=== PATIENT | male | born 1945 | race Caucasian/White ===

== ENCOUNTER 2022-11-25 05:43 | Inpatient (IN) | payer MEDICARE, OTHER ==
[2022-11-23 11:37] LABS: BASOPHILS # (AUTO) 0.1 X10'3 (0-0.2); BASOPHILS % (AUTO) 1.3 % (0-1); EOSINOPHILS # (AUTO) 0.4 X10'3 (0-0.9); EOSINOPHILS % (AUTO) 6.7 % (0-6); HEMATOCRIT 41.4 % (42.0-52.0); HEMOGLOBIN 13.9 g/dl (14.0-17.9); LYMPHOCYTES # (AUTO) 1.3 X10'3 (1.1-4.8); LYMPHOCYTES % (AUTO) 19.9 % (21-51); MEAN CORPUSCULAR HEMOGLOBIN 30.4 PG (27.0-31.0); MEAN CORPUSCULAR HGB CONC 33.6 g/dL (33.0-36.5); MEAN CORPUSCULAR VOLUME 90.7 FL (78-98); MEAN PLATELET VOLUME 7.7 FL (7.4-10.4); MONOCYTES # (AUTO) 0.5 X10'3 (0-0.9); MONOCYTES % (AUTO) 8.6 % (2-12); NEUTROPHILS % (AUTO) 63.5 % (42-75); PLATELET COUNT 309 X10'3 (140-440); RED BLOOD COUNT 4.57 X10'6 (4.70-6.10); RED CELL DISTRIBUTION WIDTH 14.3 % (11.5-14.5); WHITE BLOOD COUNT 6.4 X10'3 (4.5-11.0)
[2022-11-23 11:48] LABS: APTT 27 SECONDS (22-32)
[2022-11-23 11:56] LABS: ALANINE AMINOTRANSFERASE 17 U/L (12-78); ALBUMIN 3.8 G/DL (3.4-5.0); ALBUMIN/GLOBULIN RATIO 1.1 (1.1-1.5); ALKALINE PHOSPHATASE 75 IU/L (46-116); ANION GAP 8 (8-16); ASPARTATE AMINO TRANSFERASE 17 U/L (10-37); BILIRUBIN,TOTAL 0.5 MG/DL (0.1-1.0); BLOOD UREA NITROGEN 23 MG/DL (7-18); BUN/CREATININE RATIO 22.5 (10.0-20.0); CALCIUM 9.4 MG/DL (8.5-10.1); CHLORIDE 106 MMOL/L (99-107); CREATININE 1.02 MG/DL (0.60-1.10); GLUCOSE 148 MG/DL (70-104); POTASSIUM 4.4 MMOL/L (3.5-5.1); SODIUM 139 MMOL/L (135-145); TOTAL CARBON DIOXIDE 25.5 MMOL/L (24-32); TOTAL PROTEIN 7.4 G/DL (6.4-8.2); eGFR 71 ML/MIN
[~2022-11-25] VITALS: Ht 175.3 cm; Wt 109.8 kg
[2022-11-25] VITALS (15 sets, daily range): BP systolic 120–159; BP diastolic 74–92
[2022-11-25] MEDS ORDERED: diphenhydrAMINE 25mg capsule PO PRN (06:25)
[2022-11-25] MEDS ORDERED: glucagon, human recombinant 1mg kit SUBCUT PRN (06:25)
[2022-11-25] MEDS ORDERED: dextrose 50%-water 50ml dispensing syringe IV PRN ×2 (06:25)
[2022-11-25] MEDS ORDERED: DEXTROSE 15 GM of carb/4 tabs (each vial/BOTTLE has 4 tablets) PO PRN ×2 (06:25)
[2022-11-25] MEDS ORDERED: MESSAGE TO PHARMACY PO ONE (06:25)
[2022-11-25] MEDS ORDERED: nitroGLYCERIN 0.4mg SUBLingual tab SL PRN ×2 (06:25→11:40)
[2022-11-25] MEDS ORDERED: LORazepam 0.5 MG tablet PO PRN (06:25)
[2022-11-25] MEDS ORDERED: GLIP5TAB13 PO (06:27)
[2022-11-25] MEDS ORDERED: PIOG45TA65 PO (06:27)
[2022-11-25] MEDS ORDERED: RAMI2.5C54 PO (06:27)
[2022-11-25] MEDS ORDERED: OM3-1CAP PO (06:27)
[2022-11-25] MEDS ORDERED: METF-1203 PO (06:27)
[2022-11-25] MEDS: normal saline 1,000 ML IV SCH (07:14)
[2022-11-25] MEDS ORDERED: fentaNYL/PF 50MCG/1 ML 2ML syringe ONE (09:35)
[2022-11-25] MEDS ORDERED: iohexol 300mg/ml 100ml inj. ONE (09:35)
[2022-11-25] MEDS ORDERED: iohexol 350 MG/ML 50ML vial IV ONE (09:35)
[2022-11-25] MEDS ORDERED: LIDOcaine 1% 30ml preserv. free vial ONE (09:35)
[2022-11-25] MEDS ORDERED: midazolam 1 mg/ML 2ml injection ONE (09:35)
[2022-11-25] MEDS ORDERED: ondansetron/PF 4mg/2ml inj IV PRN (11:40)
[2022-11-25] MEDS ORDERED: normal saline 1000ml 1,000 ML IV SCH (11:40)
[2022-11-25] MEDS ORDERED: OXAZEpam 15mg capsule PO PRN (11:40)
[2022-11-25] MEDS ORDERED: HYDROcodone/acetaminophen 5mg/325mg tablet PO PRN (11:40)
[2022-11-25] MEDS ORDERED: HYDROcodone/acetaminophen 10/325mg tab PO PRN (11:40)
[2022-11-25] MEDS ORDERED: proCHLORperazine 10 MG/2 ml inj IV PRN (11:40)
[2022-11-25] MEDS ORDERED: potassium Cl 40MEQ/1/2NS 520ml 520 ML IV PRN (15:40)
[2022-11-25] MEDS ORDERED: cefazolin 2gm/D5W 100mL 100 ML IV ONE (15:40)
[2022-11-25] MEDS ORDERED: vancomycin/NS 1 GM ADD-VANTAGE 250 ML IV ONE (15:40)
[2022-11-25] MEDS ORDERED: magnesium 2GM in 50ml NS 50 ML IV PRN (15:40)
[2022-11-25] MEDS ORDERED: potassium CL 10mEq/100ml bag 100 ML IV PRN (15:40)
[2022-11-25] MEDS ORDERED: potassium Cl 40MEQ/270ML bag 250 ML IV PRN (15:40)
[2022-11-25] MEDS ORDERED: magnesium 4gm in 100ml NS 100 ML IV PRN (15:40)
[2022-11-25] MEDS ORDERED: potassium Cl 20mEq/100mL bag 100 ML IV PRN (15:40)
[2022-11-25 17:35] LABS: ALBUMIN 3.3 G/DL (3.4-5.0); ANION GAP 8 (8-16); BLOOD UREA NITROGEN 17 MG/DL (7-18); BUN/CREATININE RATIO 18.1 (10.0-20.0); CALCIUM 9.2 MG/DL (8.5-10.1); CHLORIDE 105 MMOL/L (99-107); CREATININE 0.94 MG/DL (0.60-1.10); GLUCOSE 123 MG/DL (70-104); MAGNESIUM 1.8 MG/DL (1.5-2.4); POTASSIUM 4.1 MMOL/L (3.5-5.1); SODIUM 139 MMOL/L (135-145); TOTAL CARBON DIOXIDE 25.6 MMOL/L (24-32); eGFR 78 ML/MIN
[2022-11-25 17:38] LABS: BASOPHILS % (AUTO) 0.7 % (0-1); EOSINOPHILS # (AUTO) 0.3 X10'3 (0-0.9); EOSINOPHILS % (AUTO) 5.1 % (0-6); HEMATOCRIT 40.1 % (42.0-52.0); HEMOGLOBIN 13.2 g/dl (14.0-17.9); LYMPHOCYTES # (AUTO) 1.1 X10'3 (1.1-4.8); LYMPHOCYTES % (AUTO) 18.6 % (21-51); MEAN CORPUSCULAR HGB CONC 32.8 g/dL (33.0-36.5); MEAN CORPUSCULAR VOLUME 91.5 FL (78-98); MEAN PLATELET VOLUME 7.9 FL (7.4-10.4); MONOCYTES # (AUTO) 0.6 X10'3 (0-0.9); MONOCYTES % (AUTO) 10.4 % (2-12); NEUTROPHILS # (AUTO) 3.8 X10'3 (1.8-7.7); NEUTROPHILS % (AUTO) 65.2 % (42-75); PLATELET COUNT 280 X10'3 (140-440); RED BLOOD COUNT 4.38 X10'6 (4.70-6.10); RED CELL DISTRIBUTION WIDTH 14.2 % (11.5-14.5); WHITE BLOOD COUNT 5.9 X10'3 (4.5-11.0)
[2022-11-25 17:39] LABS: APTT 28 SECONDS (22-32)
[2022-11-25] MEDS ORDERED: ACETYLCYSTEINE 200 MG/1 ML 4 ML ORAL SOLUTION PO SCH (20:00)
[2022-11-25] MEDS ORDERED: glipizide 5mg tablet PO SCH ×2 (20:00→21:29)
[2022-11-25] MEDS: insulin glargine (Lantus) pen - multi-dose SQ SCH (21:00)
--- NOTE | 2022-11-25 21:24 | NUR ---
pts b/s around 2100 was 247.pt refused the insulin protocol, said that he uses only his oral meds. Irvin was notified and he ordered that pts glipizide that was on hold be resumed this night.
[2022-11-26 02:00] VITALS: BP 135/72
[2022-11-26] MEDS: normal saline 1,000 ML IV SCH ×3 (02:25→23:24)
--- NOTE | 2022-11-26 06:29 | NUR ---
Problems reprioritized. Patient report given, questions answered & plan of care reviewed with so HARVEY.
--- NOTE | 2022-11-26 07:50 | NUR ---
Patient in room PCU 3023. I have received report from Ann HARVEY and had the opportunity to ask questions and assume patient care. Pt resting comfortably in bed wit no signs of distress. BLL, call light with in reach.
[2022-11-26] MEDS ORDERED: pioglitazone 45mg tablet PO SCH (08:00)
--- NOTE | 2022-11-26 09:40 | NUR ---
DM Consult: Pt hx DM A1C 7.0% per EMR; appropriate given advanced age. Addendum: 11/26/22 at [address] Amended: Links added.
[2022-11-26 11:00] VITALS: BP 140/75
[2022-11-26 11:06] LABS: ABG BASE EXCESS -2.6 mmol/L (-2.0-2.0); ABG HCO3 21.5 mmol/L (22.0-26.0); ABG OXYGEN SATURATION 96.9 % (94-97); ABG PCO2 (T) 35.3 mmHg (35.0-48.0); ABG PO2 (T) 85.4 mmHg (75.0-100.0); ALLEN'S TEST POSITIVE; FCOHb 0.4 % (0.0-3.9); FMetHb 0.2 % (0.0-1.5); FO2Hb 96.3 % (94-97); TOTAL HEMOGLOBIN 13.8 G/dl (14.0-17.9)
[2022-11-26 12:50] LABS: CLARITY,URINE CLEAR (Clear); COLOR,URINE YELLOW (Yellow); GLUCOSE, URINE 500 mg/dl (Neg); KETONES,URINE NEGATIVE (Neg); LEUKOCYTE ESTERASE ,URINE NEGATIVE (Neg); NITRITES, URINE NEGATIVE (Neg); OCCULT BLOOD,URINE NEGATIVE (Neg); PH,URINE 5.5 (4.8-8.0); PROTEIN,URINE NEGATIVE (Neg)
[2022-11-26 12:56] LABS: UA COLLECTION TYPE NON-SPECIFIED
--- NOTE | 2022-11-26 13:14 | NUR ---
Pt is going through prep for his CABG tomorrow. I paged vascular for when they are seeing pt as orders are in but pt has not been seen by them yet. Will continue to follow up.
[2022-11-26 15:00] VITALS: BP 153/95
[2022-11-26 15:42] LABS: BASOPHILS # (AUTO) 0.1 X10'3 (0-0.2); BASOPHILS % (AUTO) 1.5 % (0-1); EOSINOPHILS # (AUTO) 0.3 X10'3 (0-0.9); EOSINOPHILS % (AUTO) 4.3 % (0-6); HEMATOCRIT 38.6 % (42.0-52.0); LYMPHOCYTES # (AUTO) 1.1 X10'3 (1.1-4.8); LYMPHOCYTES % (AUTO) 16.9 % (21-51); MEAN CORPUSCULAR HEMOGLOBIN 30.5 PG (27.0-31.0); MEAN CORPUSCULAR HGB CONC 33.6 g/dL (33.0-36.5); MEAN CORPUSCULAR VOLUME 90.8 FL (78-98); MONOCYTES # (AUTO) 0.7 X10'3 (0-0.9); MONOCYTES % (AUTO) 11.3 % (2-12); NEUTROPHILS # (AUTO) 4.2 X10'3 (1.8-7.7); PLATELET COUNT 271 X10'3 (140-440); RED BLOOD COUNT 4.25 X10'6 (4.70-6.10); RED CELL DISTRIBUTION WIDTH 14.2 % (11.5-14.5); WHITE BLOOD COUNT 6.4 X10'3 (4.5-11.0)
[2022-11-26 15:50] LABS: ALBUMIN 3.3 G/DL (3.4-5.0); ANION GAP 4 (8-16); BLOOD UREA NITROGEN 20 MG/DL (7-18); BUN/CREATININE RATIO 17.1 (10.0-20.0); CALCIUM 9.5 MG/DL (8.5-10.1); CHLORIDE 103 MMOL/L (99-107); CREATININE 1.17 MG/DL (0.60-1.10); GLUCOSE 166 MG/DL (70-104); MAGNESIUM 1.9 MG/DL (1.5-2.4); POTASSIUM 4.6 MMOL/L (3.5-5.1); SODIUM 135 MMOL/L (135-145); TOTAL CARBON DIOXIDE 27.8 MMOL/L (24-32); eGFR 60 ML/MIN
--- NOTE | 2022-11-26 16:29 | NUR ---
Educated pt on DM and the use of insulin to cover blood sugars. Pt refused the use of insulin. Will continue to educate.
[2022-11-26] MEDS ORDERED: ringers solution, lacted 1,000 ML IV ONE (18:55)
[2022-11-26 19:00] VITALS: BP 140/74
--- NOTE | 2022-11-26 19:58 | NUR ---
Pt has been refusing insulin use as he prefers his pill use for DM management. I have talked to him about how we use insulin in the hospital for DM control but he wants to not take insulin injections.
[2022-11-26] MEDS: insulin glargine (Lantus) pen - multi-dose SQ SCH (21:00)
[2022-11-26 23:20] VITALS: BP 138/71
--- NOTE | 2022-11-26 23:36 | NUR ---
Problems reprioritized. Patient report given, questions answered & plan of care reviewed with Marleni HARVEY.
[2022-11-27] VITALS (23 sets, daily range): BP systolic 100–134; BP diastolic 49–73
--- NOTE | 2022-11-27 | NUR ---
Patient in room PCU 3023. I have received report from HOLLIE HARVEY and had the opportunity to ask questions and assume patient care. Addendum: 11/27/22 at 0210 by Marleni Dobson RN AGREE WITH HOLLIE HARVEY PATIENT ASSESSMENTS, TAKING OVER ASSIGNMENT UNTIL DAY SHIFT 11/27/22
[2022-11-27 02:07] LABS: BASOPHILS # (AUTO) 0.1 X10'3 (0-0.2); BASOPHILS % (AUTO) 0.9 % (0-1); EOSINOPHILS # (AUTO) 0.3 X10'3 (0-0.9); EOSINOPHILS % (AUTO) 4.7 % (0-6); HEMOGLOBIN 12.9 g/dl (14.0-17.9); LYMPHOCYTES # (AUTO) 1.2 X10'3 (1.1-4.8); LYMPHOCYTES % (AUTO) 19.8 % (21-51); MEAN CORPUSCULAR HEMOGLOBIN 30.6 PG (27.0-31.0); MEAN CORPUSCULAR VOLUME 90.2 FL (78-98); MEAN PLATELET VOLUME 7.3 FL (7.4-10.4); MONOCYTES # (AUTO) 0.7 X10'3 (0-0.9); MONOCYTES % (AUTO) 11.2 % (2-12); NEUTROPHILS # (AUTO) 3.7 X10'3 (1.8-7.7); NEUTROPHILS % (AUTO) 63.4 % (42-75); PLATELET COUNT 257 X10'3 (140-440); RED BLOOD COUNT 4.21 X10'6 (4.70-6.10); RED CELL DISTRIBUTION WIDTH 13.8 % (11.5-14.5); WHITE BLOOD COUNT 5.9 X10'3 (4.5-11.0)
[2022-11-27 02:17] LABS: ALBUMIN 3.1 G/DL (3.4-5.0); ANION GAP 6 (8-16); BLOOD UREA NITROGEN 19 MG/DL (7-18); BUN/CREATININE RATIO 18.3 (10.0-20.0); CALCIUM 9.2 MG/DL (8.5-10.1); CHLORIDE 105 MMOL/L (99-107); CREATININE 1.04 MG/DL (0.60-1.10); GLUCOSE 184 MG/DL (70-104); MAGNESIUM 1.9 MG/DL (1.5-2.4); POTASSIUM 4.2 MMOL/L (3.5-5.1); SODIUM 136 MMOL/L (135-145); TOTAL CARBON DIOXIDE 25.3 MMOL/L (24-32); eGFR 69 ML/MIN
[2022-11-27] MEDS ORDERED: vancomycin/NS 1 GM ADD-VANTAGE 250 ML IV ONE (05:30)
[2022-11-27] MEDS ORDERED: cefazolin 2gm/D5W 100mL 100 ML IV ONE (05:30)
[2022-11-27] MEDS ORDERED: vancomycin 1,500 MG in NS 300ml IV soln IV ONE (05:30)
[2022-11-27] MEDS ORDERED: mupirocin 2% nasal ointment 1gm UD NS SCH (05:30)
[2022-11-27] MEDS ORDERED: Insulin Reg/NS 100units/100mL 100 ML IV SCH ×2 (05:30→11:35)
[2022-11-27] MEDS ORDERED: dextrose 50%-water 50ml dispensing syringe IV PRN ×2 (05:30→11:35)
[2022-11-27] MEDS ORDERED: potassium Cl 20 mEq SR tablet PO PRN ×2 (05:30→11:35)
[2022-11-27] MEDS ORDERED: gabapentin 400mg capsule PO ONE (05:30)
[2022-11-27] MEDS ORDERED: insulin glargine (Lantus) pen - multi-dose SQ PRN ×2 (05:30→11:35)
[2022-11-27] MEDS ORDERED: epiNEPHrine 1 mg/ml inj ONE ×2 (05:45→10:00)
[2022-11-27] MEDS ORDERED: ceFAZolin 1000mg inj ONE (05:45)
[2022-11-27] MEDS ORDERED: BUPIVAcaine/PF 5 mg/ml 10ml ONE ×2 (05:46→09:21)
[2022-11-27] MEDS ORDERED: famotidine 20mg tablet PO ONE (06:00)
[2022-11-27] MEDS ORDERED: LORazepam 2 mg/ml vial IV ONE (06:00)
[2022-11-27] MEDS ORDERED: metoprolol tartrate 12.5mg (1/2 tablet) PO STA (06:38)
[2022-11-27] MEDS ORDERED: SUFENTANIL CITRATE 50 MCG/ML 2ml ampule IV ONE (07:06)
[2022-11-27] MEDS ORDERED: midazolam 1 mg/ML 2ml injection ONE (07:07)
--- NOTE | 2022-11-27 07:13 | NUR ---
Problems reprioritized. Patient report given, questions answered & plan of care reviewed with RODERICK HARVEY.
--- NOTE | 2022-11-27 07:40 | NUR ---
taken to OR for CABG
[2022-11-27] MEDS ORDERED: protamine sulf. 10mg/ml inj. IV ONE (07:43)
[2022-11-27] MEDS ORDERED: nitroGLYCERIN in D5W 50mg/250ml (Tridil) infusion IV ONE (07:43)
[2022-11-27] MEDS ORDERED: DOPamine/D5W 400mg/250ml bag IV ONE (07:43)
[2022-11-27] MEDS ORDERED: isoflurane 100ml inhalation liquid IH ONE (07:43)
[2022-11-27] MEDS ORDERED: mannitol 12.5gm/50mL VIAL IV ONE (08:00)
[2022-11-27] MEDS ORDERED: sodium bicarbonate (8.4%) 1 mEq/ml syringe ONE (08:00)
[2022-11-27] MEDS ORDERED: heparin 1,000 units/ml 10ml inj ONE (08:00)
[2022-11-27] MEDS ORDERED: albumin (human) 25% 100 ML IV solution IV ONE (08:00)
[2022-11-27] MEDS ORDERED: magnesium 1 GM/2 ML inj ONE (08:00)
[2022-11-27] MEDS ORDERED: NORepinephrine bitart. inj. IV ONE (08:00)
[2022-11-27] MEDS ORDERED: LIDOcaine 2% (20 mg/ml) 5ml cardiac syringe ONE (08:00)
[2022-11-27] MEDS ORDERED: calcium chloride 100 MG/1 ML inj IV ONE (08:00)
[2022-11-27] MEDS ORDERED: methylPREDNISolone sod succ 1000mg vial ONE (08:00)
[2022-11-27] MEDS ORDERED: heparin 10,000 units/1 ML INJ ONE (08:00)
[2022-11-27] MEDS ORDERED: aminocaproic acid 250 MG/1 ML inj. ONE (08:00)
[2022-11-27 08:17] LABS: ABG HCO3 20.6 mmol/L (22.0-26.0); ABG PCO2 40.2 mmHg (35.0-48.0); ABG PO2 393.9 mmHg (75.0-100.0); CL (ABG) 103 mmol/L (99-107); FCOHb 0.4 % (0.0-3.9); FMetHb 0.3 % (0.0-1.5); FO2Hb 99.3 % (94-97); GLUCOSE (ABG) 211 mg/dl (70-104); K (ABG) 4.2 mmol/L (3.5-5.1); TOTAL HEMOGLOBIN 12.5 G/dl (14.0-17.9)
[2022-11-27 09:42] LABS: ABG BASE EXCESS VENOUS -3.6 mmol/L (-2.0 - 2.0); ABG HCO3 VENOUS 24.2 mmol/L (21.0-28.0); ABG PCO2 VENOUS 55.7 mmHg (41.0-54.0); ABG PO2 VENOUS 45.7 mmHg (25.0-35.0); CL (ABG) 104 mmol/L (99-107); FHHb VENOUS 22.5 %; FO2Hb VENOUS 76.5 %; GLUCOSE (ABG) 94 mg/dl (70-104); IONIZED CA (ABG) 1.21 mmol/L (1.10-1.30); TOTAL HEMOGLOBIN 12.6 G/dl (14.0-17.9)
[2022-11-27 09:57] LABS: ABG HCO3 25.2 mmol/L (22.0-26.0); ABG OXYGEN SATURATION 99.6 % (94-97); ABG PCO2 43.1 mmHg (35.0-48.0); ABG PO2 324.9 mmHg (75.0-100.0); CL (ABG) 101 mmol/L (99-107); FCOHb 0.2 % (0.0-3.9); FMetHb 0.3 % (0.0-1.5); FO2Hb 99.1 % (94-97); GLUCOSE (ABG) 76 mg/dl (70-104); IONIZED CA (ABG) 1.05 mmol/L (1.10-1.30); K (ABG) 3.6 mmol/L (3.5-5.1); TOTAL HEMOGLOBIN 9.6 G/dl (14.0-17.9)
[2022-11-27] MEDS ORDERED: etomidate 2mg/ml inj. ONE (10:00)
[2022-11-27] MEDS ORDERED: phenylephrine 10mg/ml inj. -priapism dosing ONE (10:00)
[2022-11-27] MEDS ORDERED: LIDOcaine 2% (20mg/ml) 5ml vial ONE (10:00)
[2022-11-27] MEDS ORDERED: MESSAGE TO NURSING PO ONE ×5 (10:00)
[2022-11-27] MEDS ORDERED: rocuronium 10mg/ml inj IV ONE (10:00)
[2022-11-27] MEDS ORDERED: glycopyrrolate 0.2mg/ml inj ONE (10:01)
[2022-11-27] MEDS ORDERED: acetaminophen 1,000mg/100ml IV 100 ML IV ONE (10:01)
[2022-11-27] MEDS ORDERED: ipratropium/albuterol 3ml nebule IH PRN (10:15)
[2022-11-27 10:22] LABS: ABG BASE EXCESS VENOUS -0.2 mmol/L (-2.0 - 2.0); ABG HCO3 VENOUS 25.5 mmol/L (21.0-28.0); ABG PO2 VENOUS 49.7 mmHg (25.0-35.0); CL (ABG) 102 mmol/L (99-107); FCOHb VENOUS 0.5 %; FHHb VENOUS 13.3 %; FMetHb VENOUS 0.3 % (0.0 - 0.5); FO2Hb VENOUS 85.9 %; GLUCOSE (ABG) 77 mg/dl (70-104); IONIZED CA (ABG) 1.08 mmol/L (1.10-1.30); K (ABG) 4.4 mmol/L (3.5-5.1); TOTAL HEMOGLOBIN 9.9 G/dl (14.0-17.9)
[2022-11-27 10:59] LABS: ABG BASE EXCESS 0.9 mmol/L (-2.0-2.0); ABG HCO3 24.7 mmol/L (22.0-26.0); ABG OXYGEN SATURATION 99.6 % (94-97); ABG PO2 368.6 mmHg (75.0-100.0); CL (ABG) 102 mmol/L (99-107); FCOHb 0.3 % (0.0-3.9); FMetHb 0.3 % (0.0-1.5); GLUCOSE (ABG) 92 mg/dl (70-104); IONIZED CA (ABG) 1.31 mmol/L (1.10-1.30); K (ABG) 4.6 mmol/L (3.5-5.1); TOTAL HEMOGLOBIN 9.4 G/dl (14.0-17.9)
[2022-11-27 11:27] LABS: ACTIVATED CLOTTING TIME 128 SEC (101-148)
[2022-11-27] MEDS ORDERED: sodium phosphate inj. 30 MMOL in dextrose 5%-water 250 ML IV PRN (11:35)
[2022-11-27] MEDS ORDERED: HYDROcodone/acetaminophen 10/325mg tab PO PRN ×2 (11:35)
[2022-11-27] MEDS ORDERED: mineral oil 133ml enema RC PRN (11:35)
[2022-11-27] MEDS ORDERED: magnesium 4gm in 100ml NS 100 ML IV PRN (11:35)
[2022-11-27] MEDS ORDERED: sodium phosphate inj. 15 MMOL in dextrose 5%-water 250 ML IV PRN (11:35)
[2022-11-27] MEDS ORDERED: nitroGLYCERIN-Tridil 50MG/D5W 250 ML IV SCH (11:35)
[2022-11-27] MEDS ORDERED: potassium Cl 40MEQ/270ML bag 250 ML IV PRN (11:35)
[2022-11-27] MEDS ORDERED: albumin (Human) 5% 250ml 250 ML IV PRN (11:35)
[2022-11-27] MEDS ORDERED: magnesium 2GM in 50ml NS 50 ML IV PRN (11:35)
[2022-11-27] MEDS ORDERED: acetaminophen 325mg tablet PO PRN ×2 (11:35)
[2022-11-27] MEDS ORDERED: potassium CL 10mEq/100ml bag 100 ML IV PRN (11:35)
[2022-11-27] MEDS ORDERED: niCARDipine-NS 40mg/200ml IVPB 200 ML IV PRN (11:35)
[2022-11-27] MEDS ORDERED: sodium chloride 0.45% 1,000 ML IV SCH (11:35)
[2022-11-27] MEDS ORDERED: Neutra Phos packet PO PRN (11:35)
[2022-11-27] MEDS ORDERED: potassium Cl 20mEq/100mL bag 100 ML IV PRN (11:35)
[2022-11-27] MEDS ORDERED: potassium Cl 40MEQ/1/2NS 520ml 520 ML IV PRN (11:35)
[2022-11-27] MEDS ORDERED: DOPamine 400mg/D5W 250ml 250 ML IV PRN (11:35)
[2022-11-27] MEDS ORDERED: bisacodyl 10mg suppository rectal RC PRN (11:35)
[2022-11-27] MEDS ORDERED: magnesium hydroxide 30ml (MOM) UD suspension PO PRN (11:35)
--- NOTE | 2022-11-27 12:00 | NUR ---
Received to room 2010, accompanied by Morris Taylor and surgical crew. Placed on ventilator, to campus monitor, arterial line and PA line pressure zeroed & monitored. Chest tubes to suction at 20 cm. Vigil cath to gravity drainage. Dressings are dry and intact. See assessment record. All vasoactive drugs are infusing via central line.
[2022-11-27 12:24] LABS: ABG BASE EXCESS -2.9 mmol/L (-2.0-2.0); ABG HCO3 22.4 mmol/L (22.0-26.0); ABG OXYGEN SATURATION 98.3 % (94-97); ABG PCO2 (T) 38.8 mmHg (35.0-48.0); ABG PO2 (T) 125.6 mmHg (75.0-100.0); FCOHb 0.3 % (0.0-3.9); FMetHb 0.3 % (0.0-1.5); FO2Hb 97.7 % (94-97); PATIENT TEMPERATURE 35.9; PEEP 5 cm H2O; RESPIRATORY RATE 12 b/min; TIDAL VOLUME 600 mL; TOTAL HEMOGLOBIN 12.1 G/dl (14.0-17.9)
[2022-11-27 12:30] LABS: BASOPHILS % (AUTO) 0.4 % (0-1); EOSINOPHILS # (AUTO) 0.1 X10'3 (0-0.9); HEMATOCRIT 32.9 % (42.0-52.0); HEMOGLOBIN 11.1 g/dl (14.0-17.9); LYMPHOCYTES # (AUTO) 0.7 X10'3 (1.1-4.8); LYMPHOCYTES % (AUTO) 9.8 % (21-51); MEAN CORPUSCULAR HEMOGLOBIN 30.8 PG (27.0-31.0); MEAN CORPUSCULAR HGB CONC 33.8 g/dL (33.0-36.5); MONOCYTES # (AUTO) 0.3 X10'3 (0-0.9); MONOCYTES % (AUTO) 3.8 % (2-12); NEUTROPHILS # (AUTO) 5.7 X10'3 (1.8-7.7); PLATELET COUNT 164 X10'3 (140-440); RED BLOOD COUNT 3.61 X10'6 (4.70-6.10); RED CELL DISTRIBUTION WIDTH 14.2 % (11.5-14.5); WHITE BLOOD COUNT 6.8 X10'3 (4.5-11.0)
--- NOTE | 2022-11-27 12:41 | NUR ---
to see Dr. Bryan to see pt. Updated on condition. No additional orders. Addendum: 11/27/22 at 1243 by Cl Beckman RN said he tried to find the pts spouse but she wasnt in the waiting room.
[2022-11-27 12:45] LABS: APTT 31 SECONDS (22-32)
[2022-11-27 12:46] LABS: ALANINE AMINOTRANSFERASE 13 U/L (12-78); ALBUMIN 3.1 G/DL (3.4-5.0); ALBUMIN/GLOBULIN RATIO 1.5 (1.1-1.5); ALKALINE PHOSPHATASE 49 IU/L (46-116); ANION GAP 7 (8-16); ASPARTATE AMINO TRANSFERASE 19 U/L (10-37); BILIRUBIN,TOTAL 0.6 MG/DL (0.1-1.0); BLOOD UREA NITROGEN 14 MG/DL (7-18); BUN/CREATININE RATIO 14.3 (10.0-20.0); CALCIUM 8.5 MG/DL (8.5-10.1); CHLORIDE 106 MMOL/L (99-107); CREATININE 0.98 MG/DL (0.60-1.10); GLUCOSE 122 MG/DL (70-104); MAGNESIUM 2.5 MG/DL (1.5-2.4); PHOSPHORUS 2.9 MG/DL (2.3-4.5); POTASSIUM 4.5 MMOL/L (3.5-5.1); SODIUM 138 MMOL/L (135-145); TOTAL CARBON DIOXIDE 25.4 MMOL/L (24-32); TOTAL PROTEIN 5.2 G/DL (6.4-8.2); eGFR 74 ML/MIN
--- NOTE | 2022-11-27 13:11 | NUR ---
Nutrition consult: Per EMR pt remains intubated s/p CABG x5 today. Pt would benefit from post CABG nutrition therapy education as appropriate following extubation. Will continue to follow. Addendum: 11/27/22 at [address] Amended: Links added.
[2022-11-27] MEDS: morphine 2 MG/ML inj. syringe IV PRN ×3 (13:37→20:04)
--- NOTE | 2022-11-27 14:38 | NUR ---
MD visit Dr Bryan to see pt again. Condition update provided. RT to see pt. Suctioned and working on weaning parameters w/patient. Pt c/o incisional/chest pain. Will eval for additional pain meds.
[2022-11-27] MEDS: ceFAZolin/D5W- 1GM premix 50 ML IV SCH (16:06)
--- NOTE | 2022-11-27 16:14 | NUR ---
MD visit Dr. Patterson to see pt, provided update on current settings and that pts RR is 5-8 on spontaneous even though he can follow commands and pass his weaning parameters as long as he is stimulated.
--- NOTE | 2022-11-27 18:08 | NUR ---
Problems reprioritized. Patient report given, questions answered & plan of care reviewed with Umm HARVEY.
[2022-11-27 18:27] LABS: BASOPHILS % (AUTO) 0.4 % (0-1); EOSINOPHILS % (AUTO) 0.2 % (0-6); HEMATOCRIT 33.4 % (42.0-52.0); HEMOGLOBIN 11.3 g/dl (14.0-17.9); LYMPHOCYTES # (AUTO) 0.3 X10'3 (1.1-4.8); LYMPHOCYTES % (AUTO) 2.8 % (21-51); MEAN CORPUSCULAR HEMOGLOBIN 30.8 PG (27.0-31.0); MEAN CORPUSCULAR VOLUME 90.6 FL (78-98); MEAN PLATELET VOLUME 7.7 FL (7.4-10.4); MONOCYTES # (AUTO) 0.3 X10'3 (0-0.9); MONOCYTES % (AUTO) 3.1 % (2-12); NEUTROPHILS # (AUTO) 8.7 X10'3 (1.8-7.7); NEUTROPHILS % (AUTO) 93.5 % (42-75); PLATELET COUNT 186 X10'3 (140-440); RED BLOOD COUNT 3.68 X10'6 (4.70-6.10); RED CELL DISTRIBUTION WIDTH 13.9 % (11.5-14.5); WHITE BLOOD COUNT 9.3 X10'3 (4.5-11.0)
[2022-11-27 18:41] LABS: ALBUMIN 3.3 G/DL (3.4-5.0); ANION GAP 9 (8-16); BLOOD UREA NITROGEN 17 MG/DL (7-18); BUN/CREATININE RATIO 17.9 (10.0-20.0); CALCIUM 8.7 MG/DL (8.5-10.1); CHLORIDE 105 MMOL/L (99-107); CREATININE 0.95 MG/DL (0.60-1.10); GLUCOSE 189 MG/DL (70-104); PHOSPHORUS 3.5 MG/DL (2.3-4.5); POTASSIUM 4.3 MMOL/L (3.5-5.1); SODIUM 137 MMOL/L (135-145); TOTAL CARBON DIOXIDE 23.3 MMOL/L (24-32); eGFR 77 ML/MIN
[2022-11-27 19:49] LABS: ABG BASE EXCESS -3.7 mmol/L (-2.0-2.0); ABG HCO3 21.2 mmol/L (22.0-26.0); ABG OXYGEN SATURATION 95.2 % (94-97); ABG PCO2 (T) 38.1 mmHg (35.0-48.0); ABG PO2 (T) 78.1 mmHg (75.0-100.0); FCOHb 0.3 % (0.0-3.9); FMetHb 0.3 % (0.0-1.5); FO2Hb 94.6 % (94-97)
[2022-11-27] MEDS: atorvastatin 10mg tablet PO SCH (20:26)
[2022-11-27] MEDS: sennosides/docusate sodium tablet PO SCH (20:26)
[2022-11-27] MEDS: mupirocin 2% nasal ointment 1gm UD NS SCH (20:27)
[2022-11-27] MEDS: vancomycin/NS 1 GM ADD-VANTAGE 250 ML IV SCH (20:31)
[2022-11-27] MEDS: ondansetron/PF 4mg/2ml inj IV PRN ×2 (20:39→22:06)
[2022-11-27] MEDS: morphine 4 MG/ML inj SYRINge IV PRN (22:07)
[2022-11-28] VITALS (23 sets, daily range): BP systolic 101–140; BP diastolic 50–81
[2022-11-28 03:21] LABS: BASOPHILS % (AUTO) 0.1 % (0-1); EOSINOPHILS % (AUTO) 0 % (0-6); HEMATOCRIT 33.3 % (42.0-52.0); HEMOGLOBIN 11.1 g/dl (14.0-17.9); LYMPHOCYTES # (AUTO) 0.5 X10'3 (1.1-4.8); LYMPHOCYTES % (AUTO) 3.5 % (21-51); MEAN CORPUSCULAR HEMOGLOBIN 30.2 PG (27.0-31.0); MEAN CORPUSCULAR HGB CONC 33.2 g/dL (33.0-36.5); MEAN PLATELET VOLUME 8.1 FL (7.4-10.4); MONOCYTES # (AUTO) 0.7 X10'3 (0-0.9); MONOCYTES % (AUTO) 5.4 % (2-12); NEUTROPHILS # (AUTO) 11.9 X10'3 (1.8-7.7); PLATELET COUNT 206 X10'3 (140-440); RED BLOOD COUNT 3.65 X10'6 (4.70-6.10); RED CELL DISTRIBUTION WIDTH 14.4 % (11.5-14.5); WHITE BLOOD COUNT 13.1 X10'3 (4.5-11.0)
[2022-11-28 03:41] LABS: ALANINE AMINOTRANSFERASE 14 U/L (12-78); ALBUMIN 3.2 G/DL (3.4-5.0); ALBUMIN/GLOBULIN RATIO 1.3 (1.1-1.5); ALKALINE PHOSPHATASE 46 IU/L (46-116); ANION GAP 4 (8-16); ASPARTATE AMINO TRANSFERASE 41 U/L (10-37); BILIRUBIN,TOTAL 0.4 MG/DL (0.1-1.0); BLOOD UREA NITROGEN 20 MG/DL (7-18); BUN/CREATININE RATIO 20.2 (10.0-20.0); CALCIUM 8.9 MG/DL (8.5-10.1); CHLORIDE 107 MMOL/L (99-107); CREATININE 0.99 MG/DL (0.60-1.10); GLUCOSE 138 MG/DL (70-104); MAGNESIUM 2.4 MG/DL (1.5-2.4); PHOSPHORUS 4.1 MG/DL (2.3-4.5); POTASSIUM 4.5 MMOL/L (3.5-5.1); SODIUM 137 MMOL/L (135-145); TOTAL CARBON DIOXIDE 26.5 MMOL/L (24-32); TOTAL PROTEIN 5.7 G/DL (6.4-8.2); eGFR 73 ML/MIN
[2022-11-28] MEDS: metoclopramide 5 mg/ml inj IV PRN ×2 (03:53→23:47)
[2022-11-28] MEDS: morphine 2 MG/ML inj. syringe IV PRN (04:31)
--- NOTE | 2022-11-28 06:21 | NUR ---
Problems reprioritized. Patient report given, questions answered & plan of care reviewed with NICOLE HARVEY.
--- NOTE | 2022-11-28 06:30 | NUR ---
Patient in room CICU 2010. I have received report from Umm HARVEY and had the opportunity to ask questions and assume patient care. Pt complaining of N/V.. Emesis of ~200 cc. Discussed with CN - holding PO meds d/t emesis.
[2022-11-28] MEDS: ondansetron/PF 4mg/2ml inj IV PRN (06:55)
[2022-11-28] MEDS: ceFAZolin/D5W- 1GM premix 50 ML IV SCH ×4 (07:13→23:47)
[2022-11-28] MEDS: vancomycin/NS 1 GM ADD-VANTAGE 250 ML IV SCH ×2 (07:13→19:48)
[2022-11-28] MEDS: metoprolol tartrate 12.5mg (1/2 tablet) PO SCH ×2 (08:00→20:00)
[2022-11-28] MEDS: sennosides/docusate sodium tablet PO SCH ×2 (08:00→20:00)
--- NOTE | 2022-11-28 08:14 | NUR ---
Pain Pt complaining of pain between her shoulder blades and in her left arm and asked for food. Breakfast provided & tolerated well. Addendum: 11/28/22 at 0816 by Cl Beckman RN Wrong patient. Mr Fox not having this type of pain.
[2022-11-28] MEDS ORDERED: proCHLORperazine 10 MG/2 ml inj IV PRN (08:15)
[2022-11-28] MEDS: mupirocin 2% nasal ointment 1gm UD NS SCH ×2 (08:20→19:48)
[2022-11-28] MEDS: aspirin 81mg tab.chew PO SCH (08:30)
[2022-11-28] MEDS: pantoprazole 40MG/NS 100ML BAG 100 ML IV SCH (08:30)
--- NOTE | 2022-11-28 08:45 | NUR ---
MD Call Dr. Bryan called re; ongoing N/V. Orders received and pt NPO. Explained changes in plan to pt & son.
--- NOTE | 2022-11-28 09:11 | NUR ---
NG Placed Placed to Rt nare & secured with tape. Immediate garcía of air with inserting, but no coughing. Connected to LIS with return of ~150 cc dark brown/red drainage. Placement confirmed with auscultation. Pt tolerated procedure well.
[2022-11-28] MEDS: insulin glargine (Lantus) pen - multi-dose SQ SCH ×2 (09:40→21:00)
--- NOTE | 2022-11-28 10:52 | NUR ---
F/u for nutrition consult: Per RN pt with persistent N/V. Pt made NPO and and NGT was placed with ~150 cc dark brown/red drainage after pt already with ~250 cc emesis this morning per RN. Prior to NPO pt eating well with average 75% PO intake of two meals. CABG nutrition therapy education deferred until pt more stable. Will continue to follow. Addendum: 11/28/22 at [address] Amended: Links added.
[2022-11-28] MEDS: ketorolac tromethamine 15mg/ml inj. IV SCH ×3 (11:13→19:48)
--- NOTE | 2022-11-28 13:45 | NUR ---
Pt in chair Pt up with PT and wanting to return to bed now. NG was leaking down his gown and that was changed. at bedside. Encouraged to C/D/B with IS also. Has "shakes" which is not normal for him. Pt returned to bed w/PT.
--- NOTE | 2022-11-28 18:17 | NUR ---
Problems reprioritized. Patient report given, questions answered & plan of care reviewed with Umm HARVEY.
[2022-11-28] MEDS: atorvastatin 10mg tablet PO SCH (21:00)
[2022-11-28] MEDS: morphine 4 MG/ML inj SYRINge IV PRN (23:48)
[2022-11-29] VITALS (24 sets, daily range): BP systolic 115–173; BP diastolic 60–92
--- NOTE | 2022-11-29 00:25 | NUR ---
still awake claimed can not sleep with all the wires all over him , complained of bed and the noise in the other room .kept holding his NG claimed he just want to pull it , kept up in down with his bed using his remote .
[2022-11-29] MEDS: ketorolac tromethamine 15mg/ml inj. IV SCH ×4 (02:08→20:16)
[2022-11-29 03:15] LABS: BASOPHILS % (AUTO) 0.2 % (0-1); EOSINOPHILS % (AUTO) 0 % (0-6); HEMATOCRIT 29.8 % (42.0-52.0); HEMOGLOBIN 9.9 g/dl (14.0-17.9); LYMPHOCYTES # (AUTO) 0.6 X10'3 (1.1-4.8); MEAN CORPUSCULAR HEMOGLOBIN 30.6 PG (27.0-31.0); MEAN CORPUSCULAR HGB CONC 33.4 g/dL (33.0-36.5); MEAN CORPUSCULAR VOLUME 91.8 FL (78-98); MEAN PLATELET VOLUME 8.1 FL (7.4-10.4); MONOCYTES # (AUTO) 0.9 X10'3 (0-0.9); MONOCYTES % (AUTO) 8.5 % (2-12); NEUTROPHILS # (AUTO) 9.6 X10'3 (1.8-7.7); NEUTROPHILS % (AUTO) 86.3 % (42-75); PLATELET COUNT 186 X10'3 (140-440); RED BLOOD COUNT 3.25 X10'6 (4.70-6.10); RED CELL DISTRIBUTION WIDTH 14.3 % (11.5-14.5); WHITE BLOOD COUNT 11.1 X10'3 (4.5-11.0)
[2022-11-29 03:32] LABS: ALBUMIN 2.8 G/DL (3.4-5.0); ANION GAP 3 (8-16); BLOOD UREA NITROGEN 30 MG/DL (7-18); BUN/CREATININE RATIO 25.2 (10.0-20.0); CALCIUM 8.6 MG/DL (8.5-10.1); CHLORIDE 106 MMOL/L (99-107); CREATININE 1.19 MG/DL (0.60-1.10); GLUCOSE 169 MG/DL (70-104); MAGNESIUM 2.3 MG/DL (1.5-2.4); POTASSIUM 4.6 MMOL/L (3.5-5.1); SODIUM 139 MMOL/L (135-145); TOTAL CARBON DIOXIDE 29.6 MMOL/L (24-32); eGFR 59 ML/MIN
--- NOTE | 2022-11-29 06:29 | NUR ---
Problems reprioritized. Patient report given, questions answered & plan of care reviewed with JHON HARVEY.
--- NOTE | 2022-11-29 06:55 | NUR ---
Patient in room CICU 2010. I have received report from Umm HARVEY and had the opportunity to ask questions and assume patient care.
[2022-11-29] MEDS ORDERED: pantoprazole 40mg Tablet.DR PO SCH (07:30)
[2022-11-29] MEDS: mupirocin 2% nasal ointment 1gm UD NS SCH (08:00)
--- NOTE | 2022-11-29 08:00 | NUR ---
Patients central line partially out, D/c for safety
[2022-11-29] MEDS: pantoprazole 40MG/NS 100ML BAG 100 ML IV SCH (08:16)
--- NOTE | 2022-11-29 09:00 | NUR ---
Bird Singh by to round on patient, New orders D/C ng tube and resume po meds clear liquid diet and advance as tolerated Bird Singh will D/C chest tubes D/c fong after U/A is obtained
[2022-11-29] MEDS: metoprolol tartrate 12.5mg (1/2 tablet) PO SCH ×2 (09:08→20:16)
[2022-11-29] MEDS: sennosides/docusate sodium tablet PO SCH ×2 (09:08→20:16)
[2022-11-29] MEDS: aspirin 81mg tab.chew PO SCH (09:08)
[2022-11-29] MEDS ORDERED: acetaminophen 325mg tablet PO PRN (09:35)
[2022-11-29] MEDS ORDERED: traMADol 50MG tablet PO PRN (09:40)
[2022-11-29] MEDS: polyethylene glycol 3350 17gm powd pack PO SCH (09:40)
[2022-11-29 11:15] LABS: CLARITY,URINE CLOUDY (Clear); COLOR,URINE YELLOW (Yellow); GLUCOSE, URINE NEGATIVE (Neg); KETONES,URINE TRACE mg/dl (Neg); LEUKOCYTE ESTERASE ,URINE NEGATIVE (Neg); NITRITES, URINE NEGATIVE (Neg); OCCULT BLOOD,URINE MODERATE (Neg); PH,URINE 5.5 (4.8-8.0); PROTEIN,URINE TRACE mg/dl (Neg); UROBILINOGEN,URINE 0.2 E.U/dL (0.2-1.0)
[2022-11-29 11:18] LABS: UA COLLECTION TYPE NON-SPECIFIED
[2022-11-29 11:23] LABS: MUCUS STRANDS MANY /LPF (Neg); SQUAMOUS EPITHELIAL CELL,UR FEW /LPF (FEW); TRANSITIONAL EPI CELLS,URINE MODERATE /HPF
[2022-11-29 11:24] LABS: BACTERIA,URINE 1+ /HPF (Neg)
[2022-11-29 11:25] LABS: HYALINE CASTS 0-3 /LPF (NEGATIVE)
[2022-11-29] MEDS: gabapentin 300mg capsule PO SCH ×2 (14:03→20:15)
[2022-11-29] MEDS: insulin Lispro (HumaLOG) vial - multi-dose SQ SCH ×2 (14:07→17:53)
--- NOTE | 2022-11-29 18:21 | NUR ---
Problems reprioritized. Patient report given, questions answered & plan of care reviewed with Aurelia HARVEY.
--- NOTE | 2022-11-29 18:30 | NUR ---
Patient in room CICU 2010. I have received report from CANDICE Garcia and had the opportunity to ask questions and assume patient care.
[2022-11-29] MEDS: atorvastatin 10mg tablet PO SCH (20:15)
[2022-11-29] MEDS: insulin glargine (Lantus) pen - multi-dose SQ SCH (20:27)
--- NOTE | 2022-11-29 21:04 | NUR ---
unable to weigh patient, end of the bed screen shutting on and off and unsuccessful in rebooting it.
--- NOTE | 2022-11-29 21:30 | NUR ---
Patient got out of bed to the beside commode without assistance while I was in with another patient. Patient had been previously educated on the importance of using the call light for any asisstance and to not attempt getting out of bed on his own. Despite this education, patient still attempted to get out of bed on his own. Patient reeducated on using the call light and not get up on his own. I am unable to place patient on bed alarm due to bed being broken. Patient is in my view from my desk and will have someone keep an eye on him when I need to step away.
[2022-11-30] VITALS (20 sets, daily range): BP systolic 125–152; BP diastolic 55–100
[2022-11-30] MEDS: ketorolac tromethamine 15mg/ml inj. IV SCH ×4 (02:25→19:44)
--- NOTE | 2022-11-30 06:12 | NUR ---
Problems reprioritized. Patient report given, questions answered & plan of care reviewed with CANDICE Garcia.
--- NOTE | 2022-11-30 06:18 | NUR ---
Patient in room CICU 2010. I have received report from Aurelia HARVEY and had the opportunity to ask questions and assume patient care.
[2022-11-30 06:26] LABS: BASOPHILS % (AUTO) 0.2 % (0-1); EOSINOPHILS % (AUTO) 0.6 % (0-6); HEMATOCRIT 30.4 % (42.0-52.0); HEMOGLOBIN 10.2 g/dl (14.0-17.9); LYMPHOCYTES # (AUTO) 0.8 X10'3 (1.1-4.8); LYMPHOCYTES % (AUTO) 9.7 % (21-51); MEAN CORPUSCULAR HEMOGLOBIN 30.9 PG (27.0-31.0); MEAN CORPUSCULAR HGB CONC 33.6 g/dL (33.0-36.5); MEAN CORPUSCULAR VOLUME 91.9 FL (78-98); MEAN PLATELET VOLUME 7.9 FL (7.4-10.4); MONOCYTES # (AUTO) 0.9 X10'3 (0-0.9); MONOCYTES % (AUTO) 11.1 % (2-12); NEUTROPHILS # (AUTO) 6.1 X10'3 (1.8-7.7); NEUTROPHILS % (AUTO) 78.4 % (42-75); PLATELET COUNT 181 X10'3 (140-440); RED BLOOD COUNT 3.31 X10'6 (4.70-6.10); RED CELL DISTRIBUTION WIDTH 14.2 % (11.5-14.5); WHITE BLOOD COUNT 7.8 X10'3 (4.5-11.0)
[2022-11-30 06:38] LABS: ALBUMIN 2.7 G/DL (3.4-5.0); ANION GAP 5 (8-16); BLOOD UREA NITROGEN 28 MG/DL (7-18); BUN/CREATININE RATIO 28.3 (10.0-20.0); CALCIUM 8.9 MG/DL (8.5-10.1); CHLORIDE 104 MMOL/L (99-107); CREATININE 0.99 MG/DL (0.60-1.10); GLUCOSE 134 MG/DL (70-104); MAGNESIUM 2.1 MG/DL (1.5-2.4); PHOSPHORUS 2.6 MG/DL (2.3-4.5); POTASSIUM 4.2 MMOL/L (3.5-5.1); SODIUM 137 MMOL/L (135-145); TOTAL CARBON DIOXIDE 28.3 MMOL/L (24-32); eGFR 73 ML/MIN
[2022-11-30 07:44] LABS: ACT @ 1.70 U 270 SEC (193-297); ACT @ 2.84 U 346 SEC (260-420); BASELINE ACT 135 SEC (101-148)
[2022-11-30] MEDS: polyethylene glycol 3350 17gm powd pack PO SCH (07:44)
[2022-11-30] MEDS: sennosides/docusate sodium tablet PO SCH ×2 (07:45→19:41)
[2022-11-30] MEDS: gabapentin 300mg capsule PO SCH ×3 (07:45→21:01)
[2022-11-30] MEDS: metoprolol tartrate 12.5mg (1/2 tablet) PO SCH ×2 (07:45→19:42)
[2022-11-30] MEDS: pantoprazole 40mg Tablet.DR PO SCH (07:46)
[2022-11-30] MEDS: aspirin 81mg tab.chew PO SCH (07:47)
[2022-11-30] MEDS: insulin Lispro (HumaLOG) vial - multi-dose SQ SCH ×3 (08:44→19:31)
[2022-11-30] MEDS ORDERED: magnesium 2GM in 50ml NS 50 ML IV PRN (09:05)
[2022-11-30] MEDS ORDERED: potassium Cl 40MEQ/1/2NS 520ml 520 ML IV PRN (09:05)
[2022-11-30] MEDS ORDERED: potassium Cl 40MEQ/270ML bag 250 ML IV PRN (09:05)
[2022-11-30] MEDS ORDERED: potassium Cl 20mEq/100mL bag 100 ML IV PRN (09:05)
[2022-11-30] MEDS ORDERED: magnesium 4gm in 100ml NS 100 ML IV PRN (09:05)
[2022-11-30] MEDS ORDERED: potassium CL 10mEq/100ml bag 100 ML IV PRN (09:05)
[2022-11-30] MEDS ORDERED: potassium Cl 20 mEq SR tablet PO PRN ×2 (09:05)
[2022-11-30] MEDS: lactose-reduced food (Ensure Enlive) - 237ml bottle PO SCH ×2 (13:00→18:07)
--- NOTE | 2022-11-30 15:02 | NUR ---
Nutrition Consult: Pt post-op day 3 s/p CABG x5 per EMR w/ hx T2DM A1C 7.0% appropriate given age. Pt initially 75-100% carb controlled diet pre-op made NPO w/ NG placed 11/28 post-op for N/V returned to heart healthy diet / PO 50% avg meals per EMR. Overall partially meeting needs; per RN pt reports low appetite RD recommends Ensure Enlive TIDWM if physician agreeable. Noted Ensure Enlive TIDWM now active in EMR; dietary notified. Pt seen by RD for written/verbal high protein/HH diet eds w/ RD contact information provided. Pt reports no food preferences typically eats well at home. RD encouraged pt to contact dietitian's office if further nutrition questions/concerns. LBM 11/26 receiving routine senna, miralax, and PRN reglan 11/28 per EMR. Will monitor for further PO acceptance and nutrition intervention needs. Rec: 1. continue heart healthy diet per MD; if intake improves consider carb controlled restriction; encourage PO 2. Ensure Enlive TIDWM; if intake improves transition to Juan David smoothie BID 3. routine bowel regimen 4. daily wt Addendum: 11/30/22 at [address] Amended: Links added.
--- NOTE | 2022-11-30 16:13 | NUR ---
Received report from Radha GOODWIN nurse.
--- NOTE | 2022-11-30 16:45 | NUR ---
Patient arrived to unit via wheelchair. No complaints of pain or discomfort noted. Call light is in reach and BLL.
--- NOTE | 2022-11-30 16:53 | NUR ---
gave report to Nia SHEEHAN
--- NOTE | 2022-11-30 18:39 | NUR ---
Problems reprioritized. Patient report given, questions answered & plan of care reviewed with Ann HARVEY.
[2022-11-30] MEDS: magnesium Cl slow-release 64mg tablet PO SCH (19:42)
[2022-11-30] MEDS: atorvastatin 10mg tablet PO SCH (21:01)
[2022-11-30] MEDS: insulin glargine (Lantus) pen - multi-dose SQ SCH (21:31)
[2022-12-01 02:00] VITALS: BP 155/90
[2022-12-01] MEDS: ketorolac tromethamine 15mg/ml inj. IV SCH ×3 (02:06→20:58)
--- NOTE | 2022-12-01 06:27 | NUR ---
Problems reprioritized. Patient report given, questions answered & plan of care reviewed with Mine HARVEY.
[2022-12-01 07:00] VITALS: BP 140/91
[2022-12-01 07:16] LABS: BASOPHILS % (AUTO) 0.3 % (0-1); EOSINOPHILS # (AUTO) 0.4 X10'3 (0-0.9); EOSINOPHILS % (AUTO) 5.9 % (0-6); HEMATOCRIT 36.4 % (42.0-52.0); HEMOGLOBIN 12.1 g/dl (14.0-17.9); LYMPHOCYTES # (AUTO) 0.9 X10'3 (1.1-4.8); MEAN CORPUSCULAR HEMOGLOBIN 30.3 PG (27.0-31.0); MEAN CORPUSCULAR HGB CONC 33.2 g/dL (33.0-36.5); MEAN CORPUSCULAR VOLUME 91.2 FL (78-98); MEAN PLATELET VOLUME 7.5 FL (7.4-10.4); MONOCYTES % (AUTO) 14.1 % (2-12); NEUTROPHILS # (AUTO) 4.9 X10'3 (1.8-7.7); NEUTROPHILS % (AUTO) 67.7 % (42-75); PLATELET COUNT 260 X10'3 (140-440); RED CELL DISTRIBUTION WIDTH 14.3 % (11.5-14.5); WHITE BLOOD COUNT 7.3 X10'3 (4.5-11.0)
[2022-12-01 07:29] LABS: ALBUMIN 2.9 G/DL (3.4-5.0); ANION GAP 5 (8-16); BLOOD UREA NITROGEN 25 MG/DL (7-18); CALCIUM 9.4 MG/DL (8.5-10.1); CHLORIDE 103 MMOL/L (99-107); CREATININE 1.04 MG/DL (0.60-1.10); GLUCOSE 184 MG/DL (70-104); POTASSIUM 4.5 MMOL/L (3.5-5.1); SODIUM 137 MMOL/L (135-145); TOTAL CARBON DIOXIDE 29.3 MMOL/L (24-32); eGFR 69 ML/MIN
[2022-12-01] MEDS: metoprolol tartrate 12.5mg (1/2 tablet) PO SCH (09:17)
[2022-12-01] MEDS: pantoprazole 40mg Tablet.DR PO SCH (09:17)
[2022-12-01] MEDS: aspirin 81mg tab.chew PO SCH (09:17)
[2022-12-01] MEDS: gabapentin 300mg capsule PO SCH ×3 (09:18→20:54)
[2022-12-01] MEDS: magnesium Cl slow-release 64mg tablet PO SCH ×2 (09:18→20:55)
[2022-12-01] MEDS: sennosides/docusate sodium tablet PO SCH ×2 (09:18→21:14)
[2022-12-01] MEDS: polyethylene glycol 3350 17gm powd pack PO SCH (09:18)
[2022-12-01] MEDS ORDERED: bisacodyl 10mg suppository rectal RC STA (09:52)
[2022-12-01] MEDS ORDERED: metoprolol tartrate 25mg tablet PO ONE (09:55)
[2022-12-01] MEDS ORDERED: lactulose 20gm/30ml cup PO ONE (09:55)
[2022-12-01] MEDS: insulin Lispro (HumaLOG) vial - multi-dose SQ SCH (14:39)
[2022-12-01 18:00] VITALS: BP 109/79
[2022-12-01] MEDS: lactose-reduced food (Ensure Enlive) - 237ml bottle PO SCH (18:00)
[2022-12-01] MEDS: atorvastatin 10mg tablet PO SCH (20:55)
[2022-12-01] MEDS: metoprolol tartrate 50mg tablet PO SCH (20:57)
[2022-12-01] MEDS: insulin glargine (Lantus) pen - multi-dose SQ SCH (21:10)
[2022-12-01 22:00] VITALS: BP 147/77
[2022-12-02 02:00] VITALS: BP 128/72
[2022-12-02] MEDS: ketorolac tromethamine 15mg/ml inj. IV SCH ×2 (02:25→09:21)
--- NOTE | 2022-12-02 06:15 | NUR ---
Problems reprioritized. Patient report given, questions answered & plan of care reviewed with Mine HARVEY.
[2022-12-02 07:44] LABS: BASOPHILS % (AUTO) 0.5 % (0-1); EOSINOPHILS # (AUTO) 0.8 X10'3 (0-0.9); HEMATOCRIT 36.2 % (42.0-52.0); HEMOGLOBIN 11.9 g/dl (14.0-17.9); LYMPHOCYTES # (AUTO) 1.3 X10'3 (1.1-4.8); LYMPHOCYTES % (AUTO) 18.1 % (21-51); MEAN CORPUSCULAR HEMOGLOBIN 30.1 PG (27.0-31.0); MEAN CORPUSCULAR HGB CONC 32.9 g/dL (33.0-36.5); MEAN CORPUSCULAR VOLUME 91.5 FL (78-98); MONOCYTES % (AUTO) 13.3 % (2-12); NEUTROPHILS # (AUTO) 4.2 X10'3 (1.8-7.7); NEUTROPHILS % (AUTO) 57.1 % (42-75); PLATELET COUNT 289 X10'3 (140-440); RED BLOOD COUNT 3.95 X10'6 (4.70-6.10); WHITE BLOOD COUNT 7.4 X10'3 (4.5-11.0)
[2022-12-02 07:47] LABS: ALBUMIN 2.7 G/DL (3.4-5.0); ANION GAP 5 (8-16); BLOOD UREA NITROGEN 28 MG/DL (7-18); BUN/CREATININE RATIO 30.1 (10.0-20.0); CALCIUM 9.6 MG/DL (8.5-10.1); CHLORIDE 102 MMOL/L (99-107); CREATININE 0.93 MG/DL (0.60-1.10); GLUCOSE 133 MG/DL (70-104); POTASSIUM 4.7 MMOL/L (3.5-5.1); SODIUM 135 MMOL/L (135-145); TOTAL CARBON DIOXIDE 28.1 MMOL/L (24-32); eGFR 79 ML/MIN
[2022-12-02 09:18] VITALS: BP_SYST 122
[2022-12-02] MEDS: metoprolol tartrate 50mg tablet PO SCH (09:18)
[2022-12-02] MEDS: pantoprazole 40mg Tablet.DR PO SCH (09:21)
[2022-12-02] MEDS: sennosides/docusate sodium tablet PO SCH (09:21)
[2022-12-02] MEDS: aspirin 81mg tab.chew PO SCH (09:21)
[2022-12-02] MEDS: magnesium Cl slow-release 64mg tablet PO SCH (09:21)
[2022-12-02] MEDS: polyethylene glycol 3350 17gm powd pack PO SCH (09:21)
[2022-12-02] MEDS: gabapentin 300mg capsule PO SCH (09:21)
[2022-12-02] MEDS ORDERED: METO50TA16 PO (09:26)
[2022-12-02] MEDS ORDERED: ATOR10TA PO (09:26)
[2022-12-02] MEDS ORDERED: ASPI81TA53 PO (09:26)
[2022-12-02] MEDS ORDERED: TRAM50TA2 PO (09:27)
--- NOTE | 2022-12-02 16:00 | NUR ---
Pt stable for discharge per Dr. Paredes and Bird Singh. All discharge instructions reviewed with patient and all questions answered, pt verbalized understanding. New medications e-scripted to michael in [facility]. PIV discontinued, cannula intact. Tele discontinued. All belongings collected and sent with patient. Wheeled to lobby via nursing staff and picked up by spouse.
--- NOTE | 2023-01-01 13:34 | NUR ---
Case Management DC follow up: Left VM with name, reason for call, and telephone number.
== END 2022-12-02 13:58 | disposition home or self-care (01) | DRG 234 ==
LOC: SSTAY O 05:43 → PAS IN 15:48 → PCU 3S 17:52 → CICU 2S 11-27 07:44 → PCU 3S 11-30 16:45
PROVIDERS: ADMIT Thoracic Surgery (Cardiothoracic Vascular Surgery); ATTEND Thoracic Surgery (Cardiothoracic Vascular Surgery)
PROC: 4A023N7 Measurement of Cardiac Sampling and Pressure, Left Heart, Percutaneous Approach (ICD-10-PCS; 2022-11-25)
PROC: B2111ZZ Fluoroscopy of Multiple Coronary Arteries using Low Osmolar Contrast (ICD-10-PCS; 2022-11-25)
PROC: B2151ZZ Fluoroscopy of Left Heart using Low Osmolar Contrast (ICD-10-PCS; 2022-11-25)
PROC: 5A1935Z Respiratory Ventilation, Less than 24 Consecutive Hours (ICD-10-PCS; 2022-11-25)
PROC: 02110Z9 Bypass Coronary Artery, Two Arteries from Left Internal Mammary, Open Approach (ICD-10-PCS; 2022-11-27)
PROC: 021109W Bypass Coronary Artery, Two Arteries from Aorta with Autologous Venous Tissue, Open Approach (ICD-10-PCS; 2022-11-27)
PROC: 06BY3ZZ Excision of Lower Vein, Percutaneous Approach (ICD-10-PCS; 2022-11-27)
PROC: 5A1221Z Performance of Cardiac Output, Continuous (ICD-10-PCS; 2022-11-27)
PROC: B24BZZ4 Ultrasonography of Heart with Aorta, Transesophageal (ICD-10-PCS; 2022-11-27)
PROC: 02100Z8 Bypass Coronary Artery, One Artery from Right Internal Mammary, Open Approach (ICD-10-PCS; principal; 2022-11-27 07:43)
DX: I25.10 Atherosclerotic heart disease of native coronary artery without angina pectoris (principal); E11.9 Type 2 diabetes mellitus without complications; R11.2 Nausea with vomiting, unspecified; R94.39 Abnormal result of other cardiovascular function study; R00.0 Tachycardia, unspecified; E66.9 Obesity, unspecified; E78.5 Hyperlipidemia, unspecified; I10 Essential (primary) hypertension; M75.01 Adhesive capsulitis of right shoulder; Z79.82 Long term (current) use of aspirin; Z79.84 Long term (current) use of oral hypoglycemic drugs; Z79.899 Other long term (current) drug therapy; Z87.891 Personal history of nicotine dependence; Z68.35 Body mass index [BMI] 35.0-35.9, adult; T40.2X5A Adverse effect of other opioids, initial encounter; Y92.230 Patient room in hospital as the place of occurrence of the external cause
CPT/HCPCS: 36415; 36600; 71045; 71046; 80048; 80053; 81001; 81003; 82330; 82435; 82800; 82803; 82947; 82948; 83036; 83735; 84100; 84132; 84295; 85018; 85025; 85347; 85610; 85730; 86885; 86900; 86901; 86920; 87070; 87081; 93005; 93312; 93325; 93458; 93880; 93970; 94002; 94010; 94760; 97116; 97161; 97530; 99152; 99153; A4615; A4618; A6213; A6223; A6258; A6446; A6449; A7000; A7048; C1751; C1760; C9113; G0378; J0131; J0171; J0690; J0780; J1265; J1644; J1815; J1885; J2060; J2150; J2250; J2270; J2370; J2405; J2720; J2765; J2930; J3010; J3370; J3475; J3480; J3490; J7030; J7040; J7050; J7120; P9045; P9047; Q0163; Q9967

== ENCOUNTER 2023-04-06 05:47 | Inpatient (IN) | payer MEDICARE, OTHER ==
[2023-03-31 10:37] LABS: BASOPHILS % (AUTO) 0.6 % (0-1); EOSINOPHILS # (AUTO) 0.2 X10'3 (0-0.9); EOSINOPHILS % (AUTO) 3.4 % (0-6); LYMPHOCYTES # (AUTO) 1.1 X10'3 (1.1-4.8); LYMPHOCYTES % (AUTO) 17.4 % (21-51); MEAN CORPUSCULAR HEMOGLOBIN 29.7 PG (27.0-31.0); MEAN CORPUSCULAR HGB CONC 32.6 g/dL (33.0-36.5); MEAN CORPUSCULAR VOLUME 91.2 FL (78-98); MEAN PLATELET VOLUME 7.4 FL (7.4-10.4); MONOCYTES # (AUTO) 0.6 X10'3 (0-0.9); MONOCYTES % (AUTO) 9.3 % (2-12); NEUTROPHILS # (AUTO) 4.5 X10'3 (1.8-7.7); NEUTROPHILS % (AUTO) 69.3 % (42-75); PRE OP HEMATOCRIT 42.8 % (42.0-52.0); PRE OP HEMOGLOBIN 13.9 g/dL (14.0-17.9); PRE OP PLATELET COUNT 317 X10'3 (140-440); RED BLOOD COUNT 4.69 X10'6 (4.70-6.10)
[2023-03-31 10:49] LABS: PRE OP PROTIME 9.8 SECONDS (9.0-12.0)
[2023-03-31 10:55] LABS: ALBUMIN 3.6 G/DL (3.4-5.0); ALBUMIN/GLOBULIN RATIO 0.9 (1.1-1.5); ALKALINE PHOSPHATASE 73 IU/L (46-116); BLOOD UREA NITROGEN 25 MG/DL (7-18); BUN/CREATININE RATIO 29.4 (10.0-20.0); CALCIUM 9.7 MG/DL (8.5-10.1); CHLORIDE 105 MMOL/L (99-107); CREATININE 0.85 MG/DL (0.60-1.10); PRE OP ALT 20 U/L (30-65); PRE OP ANION GAP 9 (8-16); PRE OP AST 12 U/L (10-37); PRE OP BILIRUB, TOTAL 0.3 MG/DL (0.0-1.0); PRE OP GLUCOSE 177 MG/DL (70-104); PRE OP POTASSIUM 4.3 MMOL/L (3.4-5.1); PRE OP SODIUM 138 MMOL/L (135-145); TOTAL CARBON DIOXIDE 23.7 MMOL/L (24-32); TOTAL PROTEIN 7.4 G/DL (6.4-8.2); eGFR 87 ML/MIN
[2023-03-31 10:57] LABS: PRE OP INR 0.9 INR
[2023-03-31 11:02] LABS: CLARITY,URINE CLEAR (Clear); COLOR,URINE YELLOW (Yellow); GLUCOSE, URINE 100 mg/dl (Neg); KETONES,URINE NEGATIVE (Neg); LEUKOCYTE ESTERASE ,URINE NEGATIVE (Neg); NITRITES, URINE NEGATIVE (Neg); OCCULT BLOOD,URINE NEGATIVE (Neg); PH,URINE 5.5 (4.8-8.0); PROTEIN,URINE NEGATIVE (Neg); UROBILINOGEN,URINE 0.2 E.U/dL (0.2-1.0)
[2023-03-31 11:08] LABS: UA COLLECTION TYPE CLN CATCH MIDSTREAM
[2023-03-31 11:43] LABS: HEMOGLOBIN A1C 6.8 % (4.5-6.2)
[2023-04-06] VITALS (33 sets, daily range): BP systolic 110–138; BP diastolic 64–89; PULSE 74–102; RESP 11–19; TEMP 96.7–97.9; O2SAT 94–100
[~2023-04-06] VITALS: Ht 175.3 cm; Wt 101.0 kg
[~2023-04-06 05:47] MED LIST: GLIP5TAB13 PO; METF-1203 PO; PIOG45TA65 PO; RAMI2.5C54 PO; cefazolin 2gm/D5W 100mL 100 ML IV ONE; famotidine 20mg tablet PO ONE; ringers solution, lacted 1,000 ML IV SCH; tranexamic acid inj. 1,000 MG in normal saline IV soln 100ML IV ONE
--- NOTE | 2023-04-06 06:30 | NUR ---
PT DENIES DECREASED SENSATION IN RIGHT ARM, PULSES 2+. PT BATHED PER JOINT REPLACEMENT PROTOCOL. DR BROOKS DOES NOT HAVE HIS PTS USE BACTROBAN. Addendum: 04/06/23 at 0814 by Arti Taylor RN Amended: Links added.
[2023-04-06] MEDS ORDERED: vancomycin 1,000mg inj ONE (06:43)
[2023-04-06] MEDS ORDERED: fentaNYL/PF 50MCG/1 ML 2ML syringe ONE (07:08)
[2023-04-06] MEDS ORDERED: ROPIVAcaine 0.5% (5mg/ml) 30ml vial ONE (07:09)
[2023-04-06] MEDS ORDERED: midazolam 1 mg/ML 2ml injection ONE (07:09)
[2023-04-06] MEDS ORDERED: LIDOcaine 2% (20mg/ml) 5ml vial ONE (07:09)
[2023-04-06] MEDS ORDERED: propofol inj 20 ML IV ONE (07:09)
[2023-04-06] MEDS ORDERED: dexamethasone sod phosphate 4mg/ml inj. ONE (07:09)
[2023-04-06] MEDS ORDERED: ondansetron/PF 4mg/2ml inj ONE (07:10)
[2023-04-06] MEDS ORDERED: ringers solution, lacted 1,000 ML IV SCH (07:15)
[2023-04-06] MEDS ORDERED: labetalol 20mg/4ml (5mg/ml) syringe IV PRN (07:15)
[2023-04-06] MEDS ORDERED: fentaNYL/PF 50MCG/1 ML 2ML syringe IV PRN ×2 (07:15)
[2023-04-06] MEDS ORDERED: ondansetron/PF 4mg/2ml inj IV PRN ×2 (07:15→07:25)
[2023-04-06] MEDS ORDERED: morphine 2 MG/ML inj. syringe IV PRN (07:15)
[2023-04-06] MEDS ORDERED: hydrALAZINE 20mg/ml inj. IV PRN (07:15)
[2023-04-06] MEDS ORDERED: morphine 4 MG/ML inj SYRINge IV PRN (07:15)
[2023-04-06] MEDS ORDERED: desflurane 240ml liquid inh. IH ONE (07:16)
[2023-04-06] MEDS ORDERED: PHENYLephrine 10mg/ml 5ml injection IV ONE (07:16)
[2023-04-06] MEDS ORDERED: naloxone 0.4 mg/ml inj IV PRN (07:25)
[2023-04-06] MEDS ORDERED: HYDROcodone/acetaminophen 10/325mg tab PO PRN ×2 (07:25)
[2023-04-06] MEDS ORDERED: acetaminophen 325mg tablet PO PRN (07:25)
[2023-04-06] MEDS ORDERED: diphenhydrAMINE 25mg capsule PO PRN ×2 (07:25)
[2023-04-06] MEDS ORDERED: acetaminophen 1,000mg/100ml IV 100 ML IV ONE ×2 (07:46→07:49)
[2023-04-06] MEDS ORDERED: mineral oil 10ml sterile, topical TP ONE (08:50)
--- NOTE | 2023-04-06 09:59 | NUR ---
Received from OR via HOSPITAL BED TO RR 5, accompanied by Anesthesiologist KELIN and report given by Anesthesiologist. BILATERAL RADIAL PULSES PRESENT +2. NEUROLOGICAL ASSESSMENT INTACT. VSS. ON 6L MASK WITH SPO2 95%. RIGHT ARM DRESSING CDI AND WRAP AND SLING INTACT. APPLIED ICE. PT DOES NOT C/O PAIN OR NAUSEA AT THIS TIME. WILL CONTINUE TO ASSESS. LR RUNNING AT 100ML/HR AND SCD'S ARE ON. WILL CONTINUE TO MONITOR.
[2023-04-06] MEDS: potassium cl 20mEq in 1/2 NS 1,000 ML IV SCH ×2 (12:30→20:45)
--- NOTE | 2023-04-06 12:45 | NUR ---
PATIENTS IN ROOM.
[2023-04-06] MEDS: cefazolin 2gm/D5W 100mL 100 ML IV SCH ×2 (13:33→22:06)
--- NOTE | 2023-04-06 13:59 | NUR ---
PATIENT WAS ABLE TO EAT IN ROOM, STILL PENDS ADMIT ROOM ON ORTHO. PATIENT DOES NOT C/O PAIN OR NAUSEA AT THIS TIME. WILL CONTINUE TO MONITOR.
--- NOTE | 2023-04-06 15:00 | NUR ---
Patient admitted into [facility] [place]. Oriented to call light, fall precautions. Questions answered, patient is alert and appropriate at the time of admission.
--- NOTE | 2023-04-06 15:09 | NUR ---
PATIENT TAKEN TO ORTHO FLOOR ROOM 4011B WITH ALL BELONGINGS AND HOOKED UP TO ALL MONITORS IN ROOM, BLL, 2 RAILS DOWN, CALL LIGHT IN HAND AND REPORT GIVEN TO ELVIE SHEEHAN WHO HAS TAKEN OVER PATIENT CARE. I ASSISTED PATIENT TO AMBULATE TO BATHROOM, CALL LIGHT IN HAND AND PRIMARY NURSE NOTIFIED. RIGHT SHOULDER ISLAND DRESSING CDI WITH WRAP AND SHOULDER SLING INTACT. PATIENT DOES NOT C/O PAIN OR NAUSEA AT THIS TIME.
[2023-04-06] MEDS: aspirin 325mg tablet PO SCH (15:43)
--- NOTE | 2023-04-06 18:00 | NUR ---
I have reviewed and agree with interventions, assessments, and documentation by Alyce Garsia LVN.
--- NOTE | 2023-04-06 18:40 | NUR ---
Patient in room ORTHO 4011. I have received report from Alyce SHEEHAN and had the opportunity to ask questions and assume patient care.
--- NOTE | 2023-04-06 19:15 | NUR ---
Patients dinner time accu check was 258 and pt. ate 43 carbs. Patient did not want nurse to call for sliding scale order stating " I don't want to take insulin, I am going home tomorrow and will just take my metformin then".
[2023-04-07 00:09] VITALS: O2SAT 95
[2023-04-07 02:30] VITALS: BP 130/78; PULSE 88; RESP 16; TEMP 97.9; O2SAT 96
[2023-04-07] MEDS: potassium cl 20mEq in 1/2 NS 1,000 ML IV SCH (02:56)
[2023-04-07 06:00] VITALS: BP 106/54; PULSE 82; RESP 18; TEMP 98.3; O2SAT 95
--- NOTE | 2023-04-07 06:10 | NUR ---
Patient in room ORTHO 4011. I have received report from Janette HARVEY and had the opportunity to ask questions and assume patient care.
--- NOTE | 2023-04-07 06:10 | NUR ---
Problems reprioritized. Patient report given, questions answered & plan of care reviewed with Lily SHEEHAN.
[2023-04-07 06:43] LABS: BASOPHILS % (AUTO) 0.4 % (0-1); EOSINOPHILS % (AUTO) 0.2 % (0-6); HEMATOCRIT 35.3 % (42.0-52.0); HEMOGLOBIN 11.8 g/dl (14.0-17.9); LYMPHOCYTES # (AUTO) 1.2 X10'3 (1.1-4.8); LYMPHOCYTES % (AUTO) 11.8 % (21-51); MEAN CORPUSCULAR HEMOGLOBIN 30.1 PG (27.0-31.0); MEAN CORPUSCULAR HGB CONC 33.4 g/dL (33.0-36.5); MEAN CORPUSCULAR VOLUME 90.1 FL (78-98); MEAN PLATELET VOLUME 7.8 FL (7.4-10.4); MONOCYTES # (AUTO) 1.2 X10'3 (0-0.9); MONOCYTES % (AUTO) 11.5 % (2-12); NEUTROPHILS # (AUTO) 7.7 X10'3 (1.8-7.7); NEUTROPHILS % (AUTO) 76.1 % (42-75); PLATELET COUNT 270 X10'3 (140-440); RED BLOOD COUNT 3.92 X10'6 (4.70-6.10); RED CELL DISTRIBUTION WIDTH 16.1 % (11.5-14.5); WHITE BLOOD COUNT 10.1 X10'3 (4.5-11.0)
[2023-04-07] MEDS ORDERED: MESSAGE TO PHARMACY PO ONE (07:05)
[2023-04-07] MEDS ORDERED: DEXTROSE 15 GM of carb/4 tabs (each vial/BOTTLE has 4 tablets) PO PRN ×2 (07:05)
[2023-04-07] MEDS ORDERED: dextrose 50%-water 50ml dispensing syringe IV PRN ×2 (07:05)
[2023-04-07] MEDS ORDERED: glucagon, human recombinant 1mg kit SUBCUT PRN (07:05)
[2023-04-07] MEDS ORDERED: insulin Lispro (HumaLOG) vial - multi-dose SQ SCH (07:05)
[2023-04-07 07:06] LABS: ANION GAP 8 (8-16); CHLORIDE 101 MMOL/L (99-107); POTASSIUM 4.4 MMOL/L (3.5-5.1); SODIUM 132 MMOL/L (135-145); TOTAL CARBON DIOXIDE 23.4 MMOL/L (24-32)
[2023-04-07 08:00] VITALS: RESP 18; O2SAT 95
[2023-04-07] MEDS: aspirin 325mg tablet PO SCH (08:02)
--- NOTE | 2023-04-07 09:50 | NUR ---
Joint surgery consult: Pt s/p shoulder surgery per EMR. Pt seen at bedside for written/verbal high protein nutrition education. RD contact information provide and encouraged the pt to reach out for any nutrition questions or concerns. Addendum: 04/07/23 at [address] Amended: Links added.
[2023-04-07 10:00] VITALS: BP 106/54; PULSE 90; RESP 20; TEMP 98.2; O2SAT 95
--- NOTE | 2023-04-07 12:00 | NUR ---
I have reviewed and agree with interventions, assessments, and documentation by Lily Eid LVN.
--- NOTE | 2023-04-07 12:30 | NUR ---
Patient discharged home today with spouse. Patient IV removed and all belongings gathered. Patient A&O x4. All discharge papers were explained and questions were answered. Patient was wheeled downstairs and into private vehicle.
[2023-04-07] MEDS ORDERED: insulin glargine (Lantus) pen - multi-dose SQ SCH (21:00)
== END 2023-04-07 12:30 | disposition home or self-care (01) | DRG 483 ==
LOC: PAS IN 05:47 → ORTHO 4S 15:00
PROVIDERS: ADMIT Specialist; ATTEND Specialist
PROC: 0RRJ00Z Replacement of Right Shoulder Joint with Reverse Ball and Socket Synthetic Substitute, Open Approach (ICD-10-PCS; principal; 2023-04-06 07:16)
DX: M19.011 Primary osteoarthritis, right shoulder (principal); M75.101 Unspecified rotator cuff tear or rupture of right shoulder, not specified as traumatic; E11.9 Type 2 diabetes mellitus without complications; Z79.84 Long term (current) use of oral hypoglycemic drugs
CPT/HCPCS: 36415; 71046; 73030; 76000; 80051; 80053; 81003; 82948; 83036; 85025; 85610; 85730; 86885; 86900; 86901; 87081; 97110; 97161; 97530; A4565; A4618; A6449; A6455; A7000; C1776; G0378; J0131; J0690; J1100; J1815; J2250; J2370; J2405; J2704; J2795; J3010; J3370; J3480; J3490; J7120